=== PATIENT | female | born 1990 | race African-American/Black ===

== ENCOUNTER 2024-09-29 13:46 | Emergency (ER) | payer OTHER ==
[~2024-09-29] VITALS: Ht 160 cm; Wt 54.4 kg
[2024-09-29 15:11] LABS: BASOPHILS % (AUTO) 0.5 % (0.0-2.0); EOSINOPHILS # (AUTO) 0.1 K/uL (0.0-0.7); EOSINOPHILS % (AUTO) 1.9 % (0.0-6.0); HEMATOCRIT 38 % (33-45); HEMOGLOBIN 12.9 g/dL (11.5-14.8); LYMPHOCYTES # (AUTO) 1.2 K/uL (0.8-4.8); MEAN CORPUSCULAR HEMOGLOBIN 33 PG (26.0-33.0); MEAN CORPUSCULAR HGB CONC 34 g/dl (31.0-36.0); MEAN CORPUSCULAR VOLUME 97 fL (82-100); MONOCYTES # (AUTO) 0.3 K/uL (0.1-1.30); MONOCYTES % (AUTO) 8.4 % (2.0-12.0); NEUTROPHILS % (AUTO) 55.2 % (43.0-81.0); PLATELET COUNT (AUTO) 191 K/uL (150-450); RED BLOOD CELL COUNT(AUTO) 3.92 MIL/uL (4.0-5.2); RED CELL DISTRIBUTION WIDTH 13.2 % (11.5-15.0); WHITE BLOOD COUNT (AUTO) 3.6 K/uL (4.3-11.0)
[2024-09-29 15:16] LABS: CALCIUM, SERUM 9.4 mg/dL (8.5-10.1); CREATININE 0.9 mg/dL (0.6-1.3); POTASSIUM 4.3 mmol/L (3.5-5.1)
[2024-09-29 15:31] LABS: THYROID STIMULATING HORMONE 0.8 uIU/mL (0.358-3.74)
[2024-09-29 17:37] VITALS: BP 121/70; TEMP 98; O2SAT 98
== END 2024-09-29 17:38 | disposition home or self-care (01) ==
LOC: ER 13:53
DX: R25.1 Tremor, unspecified (principal); J45.909 Unspecified asthma, uncomplicated; F32.A Depression, unspecified
CPT/HCPCS: 36415; 80048-TC; 84443-TC; 85025-TC